=== PATIENT | female | born 1970 | race Caucasian/White ===

== ENCOUNTER 2018-12-24 05:25 | Inpatient (IN) | payer OTHER ==
[2018-12-24] MEDS ORDERED: LIDOCAINE 2% (SDV) 5 ML INJ (07:26)
[2018-12-24] MEDS ORDERED: MIDAZOLAM 1 MG/ML 2 ML INJ (07:26)
[2018-12-24] MEDS ORDERED: FENTAnyl 50 MCG/ML VIAL (07:26)
[2018-12-24] MEDS ORDERED: PROPOFOL 20 ML (07:26)
[2018-12-24] MEDS ORDERED: CEFAZOLIN 1 GM INJ (07:38)
[2018-12-24] MEDS ORDERED: PHENYLephrine (100 MCG/ML) 5ML SYG (07:41)
[2018-12-24] MEDS ORDERED: ONDANSETRON 4 MG INJ (07:48)
[2018-12-24] MEDS ORDERED: FAMOTIDINE 20 MG INJ (07:48)
[2018-12-24] MEDS ORDERED: DEXAMETHASONE 4 MG/ML 5 ML INJ (07:48)
[2018-12-24] MEDS ORDERED: ONDANSETRON 4 MG INJ IV ×3 (08:00→09:30)
[2018-12-24] MEDS ORDERED: HYDROmorphONE 0.5 MG/0.5 ML SYG IV ×2 (08:00)
[2018-12-24] MEDS ORDERED: PROCHLORPERAZINE 10 MG INJ IV (08:00)
[2018-12-24] MEDS ORDERED: FENTAnyl 50 MCG/ML VIAL IV ×3 (08:00)
[2018-12-24] MEDS ORDERED: hydrALAzine 20 MG INJ IV (08:00)
[2018-12-24] MEDS ORDERED: EPHEDrine SULFATE 50 MG/5 ML SYG IV (08:00)
[2018-12-24] MEDS ORDERED: DIPHENHYDRAMINE 50 MG INJ IV ×2 (08:00)
[2018-12-24] MEDS ORDERED: LABETALOL HCL 20MG INJ IV (08:00)
[2018-12-24] MEDS ORDERED: MEPERIDINE 25 MG INJ IV (08:00)
[2018-12-24] MEDS ORDERED: ZOLPIDEM 5 MG TAB PO (08:00)
[2018-12-24] MEDS ORDERED: HYDROmorphONE 1 MG/5 ML IV SYRINGE IV ×3 (08:00)
[2018-12-24] MEDS ORDERED: NALOXONE (0.4 MG/ML) INJ IV (08:00)
[2018-12-24] MEDS ORDERED: HYDROmorphONE 2 MG/ML SYG (08:39)
[2018-12-24] MEDS ORDERED: NEOSTIGMINE 10 MG INJ (08:54)
[2018-12-24] MEDS ORDERED: GLYCOPYRROLATE 0.4 MG INJ (08:54)
[2018-12-24] MEDS ORDERED: KETOROLAC 30 MG INJ (08:58)
[2018-12-24] MEDS: HYDROmorphONE 0.2 MG/ML PCA IV ×2 (09:37→09:40)
[2018-12-24] MEDS: LACTATED RINGER'S 1,000 ML IV ×3 (12:27→20:28)
[2018-12-24] MEDS: KETOROLAC 30 MG INJ IV ×2 (16:33→22:11)
[2018-12-25] MEDS: LACTATED RINGER'S 1,000 ML IV ×5 (01:03→20:20)
[2018-12-25] MEDS: KETOROLAC 30 MG INJ IV ×3 (03:59→10:35)
[2018-12-25] MEDS: MAGNESIUM HYDROXIDE 30ML CUP PO ×2 (06:09→17:00)
[2018-12-25] MEDS: BISACODYL 10 MG SUPP PR ×2 (06:09→17:00)
[2018-12-25 07:24] LABS: ADD MAN DIFF? NO
[2018-12-25 07:30] LABS: BASOPHILS % 0.2 % (0.0-2.0); HEMOGLOBIN 8.5 g/dl (12.0-16.0); LYMPHOCYTES # 0.6 10^3/ul (0.8-2.9); LYMPHOCYTES % 12.6 % (15.0-51.0); MEAN CORPUSCULAR HGB CONC 32.7 g/dl (32.0-37.0); MEAN CORPUSCULAR VOLUME 94.9 fl (82.0-101.0); MEAN PLATELET VOLUME 9.8 fl (7.4-10.4); MONOCYTE # 0.6 10^3/ul (0.3-0.9); MONOCYTES % 12.6 % (0.0-11.0); NEUTROPHIL # 3.8 10^3/ul (1.6-7.5); NEUTROPHILS % 74.2 % (39.0-77.0); PLATELET COUNT 205 10^3/UL (140-415); RED BLOOD COUNT 2.74 10^6/ul (4.20-5.40); RED CELL DISTRIBUTION WIDTH 13.5 % (11.5-14.5)
[2018-12-25 07:30] LABS: WHITE BLOOD COUNT 5.1 10^3/ul (4.8-10.8)
[2018-12-25 08:19] LABS: ALANINE AMINOTRANSFERASE 29 IU/L (13-69); ALBUMIN 3.1 g/dl (3.3-4.9); ALBUMIN/GLOBULIN RATIO 1.19; ALKALINE PHOSPHATASE 52 IU/L (42-121); ANION GAP 9 (5-13); ASPARTATE AMINO TRANSFERASE 28 IU/L (15-46); BILIRUBIN,INDIRECT 0.1 mg/dl (0-1.1); BILIRUBIN,TOTAL 0.1 mg/dl (0.2-1.3); BLOOD UREA NITROGEN 8 mg/dl (7-20); CALCIUM 8.1 mg/dl (8.4-10.2); CARBON DIOXIDE 26 mmol/L (21-31); CHLORIDE 106 mmol/L (97-110); CREATININE 0.47 mg/dl (0.44-1.00); Estimated GFR > 60 mL/min (>60); GLUCOSE 93 mg/dl (70-220); POTASSIUM 3.4 mmol/L (3.5-5.1); SODIUM 141 mmol/L (135-144); TOTAL PROTEIN 5.7 g/dl (6.1-8.1)
[2018-12-25] MEDS ORDERED: IBUPROFEN 800 MG TAB PO (09:30)
[2018-12-25] MEDS ORDERED: HYDROCODONE/APAP (5/325) TAB PO (09:30)
[2018-12-25] MEDS: HYDROCODONE/APAP (5/325) TAB PO (21:59)
[2018-12-26] MEDS: LACTATED RINGER'S 1,000 ML IV (01:30)
[2018-12-26 05:21] LABS: ADD MAN DIFF? NO
[2018-12-26 05:29] LABS: BASOPHILS % 0.3 % (0.0-2.0); HEMOGLOBIN 8.3 g/dl (12.0-16.0); LYMPHOCYTES # 0.7 10^3/ul (0.8-2.9); LYMPHOCYTES % 17.5 % (15.0-51.0); MEAN CORPUSCULAR HEMOGLOBIN 31.9 pg (29.0-33.0); MEAN CORPUSCULAR HGB CONC 33.2 g/dl (32.0-37.0); MEAN CORPUSCULAR VOLUME 96.2 fl (82.0-101.0); MEAN PLATELET VOLUME 10.1 fl (7.4-10.4); MONOCYTE # 0.6 10^3/ul (0.3-0.9); MONOCYTES % 14.3 % (0.0-11.0); NEUTROPHIL # 2.7 10^3/ul (1.6-7.5); NEUTROPHILS % 67.4 % (39.0-77.0); PLATELET COUNT 213 10^3/UL (140-415); RED CELL DISTRIBUTION WIDTH 13.5 % (11.5-14.5)
[2018-12-26] MEDS: HYDROCODONE/APAP (5/325) TAB PO (08:38)
== END 2018-12-26 18:05 | disposition home or self-care (01) | DRG 743 ==
LOC: REC 05:25 → 2NE 11:35
PROVIDERS: Obstetrics & Gynecology
PROC: 0UT90ZL Resection of Uterus, Supracervical, Open Approach (ICD-10-PCS; principal; 2018-12-24 07:24)
PROC: 0UT70ZZ Resection of Bilateral Fallopian Tubes, Open Approach (ICD-10-PCS; 2018-12-24 07:24)
PROC: 0USG0ZZ Reposition Vagina, Open Approach (ICD-10-PCS; 2018-12-24 07:24)
DX: N92.0 Excessive and frequent menstruation with regular cycle (principal); D25.9 Leiomyoma of uterus, unspecified; R10.2 Pelvic and perineal pain; D64.9 Anemia, unspecified; N81.89 Other female genital prolapse; N70.11 Chronic salpingitis; R93.89 Abnormal findings on diagnostic imaging of other specified body structures
CPT/HCPCS: 80053; 84702; 85025; 86850; 86900; 86901; 86920; 87086; 88305